=== PATIENT | female | born 1980 | race Caucasian/White ===

== ENCOUNTER → 2020-09-10 | Day surgery (SDC) | payer OTHER ==
[2020-09-05 10:23] LABS: BASOPHILS # (AUTO) 0.1 (0.0-0.1); BASOPHILS % 0.5 % (0.0-1.0); EOSINOPHILS # (AUTO) 0.1 (0.0-0.4); EOSINOPHILS % 0.4 % (0.0-6.0); HEMATOCRIT 44.9 % (34.2-44.1); HEMOGLOBIN 14.5 g/dL (12.0-16.0); LYMPHOCYTES # (AUTO) 2.1 (1.0-3.2); LYMPHOCYTES % 13.8 % (18.0-39.1); MEAN CORPUSCULAR HGB CONC 32.3 g/dL (31-35); MEAN CORPUSCULAR VOLUME 92.8 fL (81-99); MONOCYTES # (AUTO) 0.7 (0.2-0.8); MONOCYTES % 4.4 % (4.4-11.3); NEUTROPHILS # (AUTO) 12.4 (2.1-6.9); NEUTROPHILS % 80.5 % (38.7-80.0); PLATELET COUNT 240 x10e3/uL (140-360); RED BLOOD COUNT 4.84 x10e6/uL (3.6-5.1); RED CELL DISTRIBUTION WIDTH 13.3 % (11.7-14.4)
[2020-09-05 10:46] LABS: ALANINE AMINOTRANSFERASE 16 IU/L (0-55); ALBUMIN 4.4 g/dL (3.5-5.0); ALBUMIN/GLOBULIN RATIO 1.8 (0.8-2.0); ALKALINE PHOSPHATASE 67 IU/L (40-150); ANION GAP 13.3 mmol/L (8-16); BLOOD UREA NITROGEN 14 mg/dL (7-26); BUN/CREATININE RATIO 17 (6-25); CALCIUM 8.8 mg/dL (8.4-10.2); CARBON DIOXIDE 26 mmol/L (22-29); CHLORIDE 108 mmol/L (98-107); CREATININE, SERUM 0.83 mg/dL (0.57-1.11); EST GLOMERULAR FILTRATION RATE > 60 ML/MIN (60-); GLUCOSE 124 mg/dL (74-118); POTASSIUM 4.3 mmol/L (3.5-5.1); SODIUM 143 mmol/L (136-145)
[~2020-09-10] VITALS: Ht 165.1 cm; Wt 72.6 kg
[~2020-09-10] MED LIST: ATENOLOL50 MG PO; BENZOCAINE 20% SPR 60 ML CAN ONE; FENTANYL CITRATE/PF 100MCG/2 ML INJ ONE; HEATHER0.35 MG PO; LIDOCAINE HCL 2% LOCAL INJ 5 ML SDV VIAL INJ ONE; MIDAZOLAM HCL 2 MG/2 ML VIAL ONE; PROPOFOL IV EMULSION 10 MG/ML 20 ML VIAL ONE; SODIUM CHLORIDE 0.9% 1000ML 1,000 ML ONE
[2020-09-10 08:19] VITALS: BP 100/52
[2020-09-10 09:33] VITALS: BP 114/62
[2020-09-10 09:38] VITALS: BP 110/62
[2020-09-10 09:40] VITALS: BP 110/62
[2020-09-10 10:00] VITALS: BP 160/59
== END | disposition home or self-care (01) ==
LOC: CATH LAB 07:11
PROVIDERS: ATTEND Internal Medicine
DX: R07.2 Precordial pain (principal); R01.1 Cardiac murmur, unspecified; I34.1 Nonrheumatic mitral (valve) prolapse; Z83.3 Family history of diabetes mellitus; Z82.49 Family history of ischemic heart disease and other diseases of the circulatory system; Z82.3 Family history of stroke; Z84.1 Family history of disorders of kidney and ureter; Z87.891 Personal history of nicotine dependence; Z11.59 Encounter for screening for other viral diseases
CPT/HCPCS: 36415 ×2; 80053; 84702; 85025; 93312; 93320; 93325; J2001; J2250; J2704; J3010; J7030; U0002; 93307